=== PATIENT | male | born 1980 | race African-American/Black ===

== ENCOUNTER 2016-12-11 17:45 | Emergency (ER) | payer SELFPAY ==
[~2016-12-11] VITALS: Ht 180.3 cm; Wt 64.0 kg
[2016-12-11 17:52] VITALS: BP 124/74
== END 2016-12-11 22:00 | disposition left against medical advice (07) ==
LOC: ER 17:52
DX: Z53.21 Procedure and treatment not carried out due to patient leaving prior to being seen by health care provider (principal)